=== PATIENT | male | born 1985 | race Caucasian/White ===

== ENCOUNTER 2022-07-13 02:43 | Emergency (ER) | payer BC ==
[2022-07-13] MEDS ORDERED: HYDROcodone/Acetaminophen 7.5/325 mg Tablet ONE (03:08)
[2022-07-13] MEDS ORDERED: diphenhydrAMINE 50 MG/ML VIAL ONE (03:08)
[2022-07-13] MEDS ORDERED: methylPREDNISolone Sod Succ/PF 125 MG/2 ML VIAL ONE (03:08)
[2022-07-13] MEDS ORDERED: HYDROcodone/Acetaminophen 10/325 mg Tablet ONE (03:21)
[2022-07-13] MEDS ORDERED: EPINEPHrine 1 MG/ML AMP ONE (04:01)
[2022-07-13] MEDS ORDERED: Famotidine/PF 20 mg/2ml Vial ONE (04:02)
== END 2022-07-13 06:23 | disposition home or self-care (01) ==
LOC: NAV ERS 02:43
DX: T63.441A Toxic effect of venom of bees, accidental (unintentional), initial encounter (principal); F17.210 Nicotine dependence, cigarettes, uncomplicated; F17.220 Nicotine dependence, chewing tobacco, uncomplicated; Z79.899 Other long term (current) drug therapy; Z79.82 Long term (current) use of aspirin
CPT/HCPCS: 96372; 96374; 96375; J0171; J1200; J2930; S0028